=== PATIENT | female | born 1985 | race Caucasian/White ===

== ENCOUNTER 2018-06-09 10:46 | Outpatient (CLI) | payer OTHER ==
[~2018-06-09] VITALS: Ht 160 cm; Wt 60.6 kg
[~2018-06-09 10:46] MED LIST: PREN1TAB31 PO
[2018-06-09 11:10] VITALS: Ht 160 cm; Wt 60.6 kg
[2018-06-09 11:11] VITALS: BP 108/64; PULSE 75; RESP 20
--- NOTE | 2018-06-09 17:08 | PN ---
Triage Information Date/Time Reason for visit: 35+wks GA for NST BPP and EFW Weeks of Gestation 35+ /Para n.a Diabetes: none Hypertention: none Objective Vital Signs Date Temp Pulse Resp B/P (MAP) Pulse Ox O2 O2 Flow FiO2 Time Delivery Rate 06/09/18 97.5 75 20 108/64 Room Air 11:11 (79) Heart Rate: 140's Contractions: None Results/Medications Results 24 hrs Laboratory Tests Test 06/09/18 11:04 Urine Color YELLOW Urine Clarity CLEAR Urine pH 7.0 Urine Specific [place] 1.013 Urine Ketones TRACE A Urine Nitrite NEGATIVE Urine Bilirubin NEGATIVE Urine Urobilinogen 1+ H Urine Leukocyte Esterase NEGATIVE Urine Hemoglobin NEGATIVE Urine Glucose NEGATIVE Urine Total Protein NEGATIVE Disposition: Discharge Assessment/Plan BPP 01/22 Doppler studies reviewed Return to hospital in two days to monitor the bady Questions answered Follow up with provider QUIRINO LEPE M.D. Jun 09, 2018 17:08
--- NOTE | 2018-06-09 17:24 | TRIAGE ---
OB Triage Datetime Report Generated by CPN: 06/09/2018 17:24 Datetime: 06/09/2018 16:00 Labor Evaluation Frequency: X4 Monitor Mode: External Duration (sec)2399: 60 Quality: Strong Pattern: Normal: <= 5 Contractions in 10 Minutes Resting Tone [place]: Relaxed Heart Rate FHR Baseline Rate: 160 Monitor Mode: External US FHR Baseline Changes: No Baseline Change Variability: Moderate 6-25 bpm Accelerations: 15X15 Decelerations: None Category: Category I Pain Assessment Pain Scale: 7 Pain Presence: Intermittent Pain Type: Cramping Pain Location: Abdomen Pain Goal: 0 Datetime: 06/09/2018 14:59 Labor Evaluation Frequency: X5 Monitor Mode: External Duration (sec)2399: 60 Quality: Strong Pattern: Normal: <= 5 Contractions in 10 Minutes Resting Tone [place]: Relaxed Heart Rate FHR Baseline Rate: 130 Monitor Mode: External US FHR Baseline Changes: No Baseline Change Variability: Moderate 6-25 bpm Accelerations: 15X15 Decelerations: None Category: Category I Pain Assessment Pain Scale: 7 Pain Presence: Intermittent Pain Type: Contraction Pain Location: Abdomen Pain Goal: 0 Datetime: 06/09/2018 14:33 Vaginal Exam Dilatation (cms): 0.5 Effacement (%): 40 Station: -3 Exam By: MAY Datetime: 06/09/2018 14:00 Labor Evaluation Frequency: X4 Monitor Mode: External Duration (sec)2399: 60-100 Quality: Strong Pattern: Normal: <= 5 Contractions in 10 Minutes Resting Tone [place]: Relaxed Heart Rate FHR Baseline Rate: 130 Monitor Mode: External US FHR Baseline Changes: No Baseline Change Variability: Moderate 6-25 bpm Accelerations: 15X15 Decelerations: None Category: Category I Pain Assessment Pain Scale: 7 Pain Presence: Intermittent Pain Type: Contraction Pain Location: Abdomen Pain Goal: 0 Datetime: 06/09/2018 13:20 Labor Evaluation Frequency: x2 Monitor Mode: External Duration (sec)2399: 60-80 Quality: Mild Pattern: Normal: <= 5 Contractions in 10 Minutes Resting Tone [place]: Relaxed Heart Rate FHR Baseline Rate: 135 Monitor Mode: External US Variability: Moderate 6-25 bpm Accelerations: 15X15 Decelerations: None Category: Category I Datetime: 06/09/2018 12:29 Labor Evaluation Frequency: X2 Monitor Mode: External Duration (sec)2399: 60 Quality: Strong Pattern: Normal: <= 5 Contractions in 10 Minutes Resting Tone [place]: Relaxed Heart Rate FHR Baseline Rate: 130 Monitor Mode: External US FHR Baseline Changes: No Baseline Change Variability: Moderate 6-25 bpm Accelerations: 15X15 Decelerations: None Category: Category I Pain Assessment Pain Scale: 7 Pain Presence: Intermittent Pain Type: Contraction Pain Location: Abdomen Pain Goal: 2 Datetime: 06/09/2018 11:52 Labor Evaluation Frequency: X1 Monitor Mode: External Duration (sec)2399: 60 Quality: Mild Pattern: Normal: <= 5 Contractions in 10 Minutes Resting Tone [place]: Relaxed Heart Rate FHR Baseline Rate: 130 Monitor Mode: External US FHR Baseline Changes: No Baseline Change Variability: Moderate 6-25 bpm Accelerations: 15X15 Decelerations: None Category: Category I Pain Assessment Pain Scale: 7 Pain Presence: Intermittent Pain Type: Contraction Pain Location: Abdomen Pain Goal: 0 Datetime: 06/09/2018 11:29 Labor Evaluation Frequency: X2 Monitor Mode: External Duration (sec)2399: 40 Quality: Strong Pattern: Normal: <= 5 Contractions in 10 Minutes Resting Tone [place]: Relaxed Heart Rate FHR Baseline Rate: 130 Monitor Mode: External US FHR Baseline Changes: No Baseline Change Variability: Moderate 6-25 bpm Accelerations: 15X15 Decelerations: None Category: Category I Pain Assessment Pain Scale: 7 Pain Presence: Intermittent Pain Type: Contraction Pain Location: Abdomen Pain Goal: 2 Datetime: 06/09/2018 11:05 Stage of : OB Triage Assessment Type: Triage Time of Arrival: 06/09/2018 10:44 EGA: 35.5 Arrived By: Ambulatory Arrived From: [facility] Office Chief Complaint: SMALL FOR DATES. Movement: Present Contractions: Irregular Rupture of Membranes: Denies Vaginal Discharge: Denies Recent Sexual Intercouse: Denies Abdominal Trauma: Not Applicable Patient Complaints: Contractions Time Provider Notified: 06/09/2018 12:43 Provider Notified: DR. WHITMAN Initial Plan: NST, BPP, EFW Maternal Assessment Level of Consciousness: Fully Conscious DTR's/Clonus: DTRs 2+; No Clonus Headache: Denies Blurred Vision: No Respiratory Effort: Unlabored; Regular Rhythm; Equal Expansion Nausea/Vomiting: Denies RUQ Epigastric Pain: Denies Lower Extremities Edema: None Degree: None Upper Extremities Edema: None Degree: None Facial Edema: None Temperature Route: Axillary Fall Risk Assessment History of Falling: (0) No Secondary Diagnosis: (0) No Ambulatory Aid: (0) Bedrest/Nurse Assist IV Therapy: (0) No Gait: (0) Normal/Bedrest/Immobile Mental Status: (0) Oriented to Own Ability Fall Score: 0 Fall Risk Score Definition: No Risk: No action required Monitor Mode: External Monitor Mode: External US Pain Assessment Pain Scale: 7 Pain Presence: Intermittent Pain Type: Contraction Pain Location: Abdomen Pain Goal: 0
== END 2018-06-09 17:25 | disposition home or self-care (01) ==
LOC: OBT 10:46 → L-D 11:08 → OBT 17:25
PROVIDERS: ATTEND Obstetrics & Gynecology
DX: O26.843 Uterine size-date discrepancy, third trimester (principal); Z3A.35 35 weeks gestation of pregnancy
CPT/HCPCS: 76815; 76818; 76820; 81003; Z7500; G0463

== ENCOUNTER 2018-06-11 09:18 | Outpatient (CLI) | payer OTHER ==
[~2018-06-11] VITALS: Ht 160 cm; Wt 60.2 kg
[2018-06-11 09:34] VITALS: Ht 160 cm; Wt 60.2 kg
[2018-06-11 09:35] VITALS: BP 102/63; PULSE 87; RESP 18
--- NOTE | 2018-06-11 11:47 | TRIAGE ---
OB Triage Datetime Report Generated by CPN: 06/11/2018 11:46 Datetime: 06/11/2018 10:45 Stage of : OB Triage Maternal Assessment Level of Consciousness: Fully Conscious Labor Evaluation Frequency: OCCASIONAL Monitor Mode: External Duration (sec)2399: 80-120 Quality: Mild Resting Tone [place]: Relaxed Heart Rate FHR Baseline Rate: 135 Monitor Mode: External US Variability: Moderate 6-25 bpm Accelerations: 15X15 Decelerations: None Category: Category I Pain Assessment Pain Scale: 0 Pain Goal: 3 Vaginal Exam Membrane Status: Intact Vaginal Bleeding: None Datetime: 06/11/2018 09:31 Assessment Type: Triage Time of Arrival: 06/11/2018 09:15 EGA: 36.0 Arrived By: Ambulatory Arrived From: Home Chief Complaint: F/U NST/BPP FOR IUGR Movement: Present Contractions: Denies/Absent Rupture of Membranes: Denies Vaginal Bleeding: None Vaginal Discharge: Denies Recent Sexual Intercouse: Denies Abdominal Trauma: Not Applicable Patient Complaints: None Time Provider Notified: 06/11/2018 10:00 Provider Notified: ESHAGHIAN Initial Plan: EFM Maternal Assessment Level of Consciousness: Fully Conscious DTR's/Clonus: DTRs 2+; No Clonus Headache: Denies Blurred Vision: No Respiratory Effort: Unlabored; Regular Rhythm; Equal Expansion Breath Sounds, Left: Clear and Equal Breath Sounds, Right: Clear and Equal Nausea/Vomiting: Denies RUQ Epigastric Pain: Denies Lower Extremities Edema: None Degree: None Upper Extremities Edema: None Degree: None Facial Edema: None Fall Risk Assessment History of Falling: (0) No Secondary Diagnosis: (0) No Ambulatory Aid: (0) Bedrest/Nurse Assist IV Therapy: (0) No Gait: (0) Normal/Bedrest/Immobile Mental Status: (0) Oriented to Own Ability Fall Score: 0 Fall Risk Score Definition: No Risk: No action required Datetime: 06/11/2018 09:29 Monitor Mode: External Monitor Mode: External US Datetime: 06/09/2018 17:00 Labor Evaluation Frequency: X4 Monitor Mode: External Duration (sec)2399: 40-60 Quality: Strong Pattern: Normal: <= 5 Contractions in 10 Minutes Resting Tone [place]: Relaxed Heart Rate FHR Baseline Rate: 130 Monitor Mode: External US FHR Baseline Changes: No Baseline Change Variability: Moderate 6-25 bpm Accelerations: 15X15 Decelerations: None Category: Category I Pain Assessment Pain Scale: 7 Pain Presence: Intermittent Pain Type: Ache Pain Location: Abdomen Pain Goal: 0 Datetime: 06/09/2018 11:05 EGA: 35.5 Fall Score: 0 Fall Risk Score Definition: No Risk: No action required
--- NOTE | 2018-06-11 16:43 | PN ---
Triage Information Date/Time Reason for visit: Patient sent from her primary OB office for antepartum testing. Weeks of Gestation 36 weeks /Para Diabetes: none Hypertention: none Objective Vital Signs Date Temp Pulse Resp B/P (MAP) Pulse Ox O2 O2 Flow FiO2 Time Delivery Rate 06/11/18 97.7 87 18 102/63 Room Air 09:35 (76) Heart Rate: 140's Contractions: None Results/Medications Imaging Results There is a single intrauterine gestation in a vertex position. The heart rate is noted at 158 bpm. The placenta is maternal left. The LESTER measures 11.7 cm. RPTAT: AA IMPRESSION: Normal LESTER. Disposition: Discharge Assessment/Plan 33-year-old at 36 weeks present for antepartum testing. She states good movement. She denies nausea, vomiting, shortness of breath, chest pain, abdominal pain, headache, visual changes, vaginal bleeding or LOF. - FHR: No sign of metabolic acidosis- Category I - Contractions: None. - Symptoms and sign of labor, preeclampsia, kick count discussed with patient, she voiced understanding. All of her questions answered. - Patient was discharged home in stable condition with the appropriate discharge instructions provided. I would like patient to have close follow-up with her primary physician or outpatient clinic in 1-2 days or return to triage for worsening symptoms or any other urgent concerns. CLAU SPEARS Jun 11, 2018 16:43
== END 2018-06-11 11:50 | disposition home or self-care (01) ==
LOC: OBT 09:18 → L-D 09:18 → OBT 11:50
PROVIDERS: ATTEND Obstetrics & Gynecology
DX: O62.9 Abnormality of forces of labor, unspecified (principal); Z3A.36 36 weeks gestation of pregnancy
CPT/HCPCS: 76815; Z7500; G0463

== ENCOUNTER 2018-06-16 22:48 | Outpatient (CLI) | payer OTHER ==
[~2018-06-16] VITALS: Ht 160 cm; Wt 60.7 kg
[2018-06-16 23:40] VITALS: Ht 160 cm; Wt 60.7 kg
--- NOTE | 2018-06-17 01:18 | PN ---
Triage Information Date/Time June 17, 2018 Reason for visit: Uterine contractions Weeks of Gestation 36w 6d /Para 5/3 Diabetes: none Hypertention: none Additional information No leaking or bleeding. Pt talks mostly about the pain she experiences being due to the baby kicking her. PMHx: none. PSHx: x 3. NKDA Objective Heart Rate: 130's Heart Rate Comments Accels to 180 bpm. No decels. Contractions: >10 Minutes Apart (rare) Exam Closed/thick/-4 Results/Medications Results 24 hrs Laboratory Tests Test 06/16/18 23:08 06/17/18 00:19 Urine Color STRAW Urine Clarity CLEAR Urine pH 7.0 Urine Specific [place] 1.011 Urine Ketones NEGATIVE Urine Nitrite NEGATIVE Urine Bilirubin NEGATIVE Urine Urobilinogen NEGATIVE Urine Leukocyte Esterase NEGATIVE Urine Hemoglobin NEGATIVE Urine Glucose NEGATIVE Urine Total Protein NEGATIVE White Blood Count 7.8 Red Blood Count 3.44 L Hemoglobin 10.0 L Hematocrit 31.9 L Mean Corpuscular Volume 92.7 Mean Corpuscular Hemoglobin 29.1 Mean Corpuscular Hemoglobin Concent 31.3 L Red Cell Distribution Width 14.6 H Platelet Count 296 Mean Platelet Volume 9.2 Immature Granulocytes % 0.300 Neutrophils % 58.3 Lymphocytes % 30.4 Monocytes % 6.4 Eosinophils % 4.2 Basophils % 0.4 Nucleated Red Blood Cells % 0.0 Immature Granulocytes # 0.020 Neutrophils # 4.6 Lymphocytes # 2.4 Monocytes # 0.5 Eosinophils # 0.3 Basophils # 0.0 Nucleated Red Blood Cells # 0.0 Sodium Level 137 Potassium Level 3.5 Chloride Level 107 Carbon Dioxide Level 20 L Anion Gap 10 Blood Urea Nitrogen 8 Creatinine 0.67 Est Glomerular Filtrat Rate mL/min > 60 Glucose Level 81 Calcium Level 8.3 L Total Bilirubin 0.1 L Direct Bilirubin 0.00 Indirect Bilirubin 0.1 Aspartate Amino Transf (AST/SGOT) 17 Alanine Aminotransferase (ALT/SGPT) 12 L Alkaline Phosphatase 131 H Total Protein 6.4 Albumin 3.2 L Globulin 3.20 Albumin/Globulin Ratio 1.00 Imaging Results BPP 8/8 with an LESTER of 12.6 cm. Renal US negative. Disposition: Discharge Assessment/Plan A: IUP at 36w 6d. False labor. P: D/C home. Reviewed labor precautions with the pt. F/u with her doctor as scheduled this week. CONG HUYNH MD Jun 17, 2018 01:18
--- NOTE | 2018-06-17 01:34 | TRIAGE ---
OB Triage Datetime Report Generated by CPN: 06/17/2018 01:34 Datetime: 06/17/2018 01:12 Labor Evaluation Frequency: x1 Monitor Mode: External Duration (sec)2399: 60 Pattern: Normal: <= 5 Contractions in 10 Minutes Heart Rate FHR Baseline Rate: 135 Monitor Mode: External US FHR Baseline Changes: No Baseline Change Variability: Moderate 6-25 bpm Accelerations: 15X15 Datetime: 06/17/2018 00:30 Labor Evaluation Frequency: 0 Monitor Mode: External Duration (sec)2399: 0 Pattern: Normal: <= 5 Contractions in 10 Minutes Heart Rate FHR Baseline Rate: 135 Monitor Mode: External US FHR Baseline Changes: No Baseline Change Variability: Moderate 6-25 bpm Accelerations: 15X15 Decelerations: Variable Datetime: 06/17/2018 00:27 Pain Assessment Comments: PATIENT STATES SHE IS FEELING 'BETTER' AFTER BEING IN HOSPITAL Datetime: 06/17/2018 00:26 Monitor Mode: Palpation Resting Tone [place]: Relaxed Datetime: 06/16/2018 23:30 Monitor Mode: External Pattern: Normal: <= 5 Contractions in 10 Minutes Contraction Comments: Unable to fruit or nut picker uc's. readjusted toco Heart Rate FHR Baseline Rate: 125 Monitor Mode: External US FHR Baseline Changes: No Baseline Change Variability: Moderate 6-25 bpm Accelerations: 15X15 Datetime: 06/16/2018 23:26 Pain Assessment Comments: PATIENT C/O RIGHT LATERAL BACK PAIN Datetime: 06/16/2018 23:17 Pain Assessment Pain Scale: 9 Pain Presence: Intermittent Pain Location: Back Pain Relief Measures: Comfort Measures Vaginal Exam Dilatation (cms): 0.0 Effacement (%): 0 Station: -4 Exam By: MARIANELA RN Vaginal Bleeding: None Cervix, Consistency: Firm Cervix, Position: Posterior Presentation 'A': Unable to Assess Datetime: 06/16/2018 23:06 Maternal Assessment Level of Consciousness: Fully Conscious Headache: Denies Blurred Vision: No Nausea/Vomiting: Denies RUQ Epigastric Pain: Denies Facial Edema: None Datetime: 06/16/2018 23:04 Monitor Mode: Palpation Resting Tone [place]: Relaxed Datetime: 06/16/2018 23:03 Temperature Route: Oral Datetime: 06/16/2018 22:57 Stage of : OB Triage Assessment Type: Triage Maternal Assessment Level of Consciousness: Fully Conscious Headache: Denies Blurred Vision: No Respiratory Effort: Unlabored; Regular Rhythm; Equal Expansion Nausea/Vomiting: Denies RUQ Epigastric Pain: Denies Facial Edema: None Fall Risk Assessment History of Falling: (0) No Secondary Diagnosis: (0) No Ambulatory Aid: (0) Bedrest/Nurse Assist IV Therapy: (0) No Gait: (0) Normal/Bedrest/Immobile Mental Status: (0) Oriented to Own Ability Fall Score: 0 Fall Risk Score Definition: No Risk: No action required Datetime: 06/16/2018 22:56 Time of Arrival: 06/16/2018 22:42 EGA: 36.5 Arrived By: Wheelchair Arrived From: Home Chief Complaint: uc's since noon Movement: Present Contractions: Regular Contractions: q5min Rupture of Membranes: Denies Vaginal Bleeding: None Vaginal Discharge: Denies Recent Sexual Intercouse: Denies Abdominal Trauma: Not Applicable Patient Complaints: Contractions Time Provider Notified: 06/16/2018 23:37 Provider Notified: Eshaghian Initial Plan: efm, sve, call ob Datetime: 06/11/2018 09:31 EGA: 36.0 Fall Score: 0 Fall Risk Score Definition: No Risk: No action required Datetime: 06/09/2018 11:05 EGA: 35.5 Fall Score: 0 Fall Risk Score Definition: No Risk: No action required
== END 2018-06-17 01:18 | disposition home or self-care (01) ==
LOC: OBT 22:48 → L-D 22:49 → OBT 06-17 01:18
PROVIDERS: ATTEND Obstetrics & Gynecology
DX: O62.9 Abnormality of forces of labor, unspecified (principal); Z3A.36 36 weeks gestation of pregnancy
CPT/HCPCS: 76775; 76818; 80053; 81003; 85025; Z7500; G0463

== ENCOUNTER 2018-06-20 10:18 | Inpatient (IN) | payer OTHER ==
[~2018-06-20] VITALS: Ht 160 cm; Wt 60.7 kg
[~2018-06-20 10:18] MED LIST changes: +OXYTOCIN 30 UNITS/LR 500 ML BAG IV ONE
[2018-06-20 10:30] VITALS: Ht 160 cm; Wt 60.7 kg
[2018-06-20 10:32] VITALS: BP 102/57; PULSE 68; RESP 18
[2018-06-20] MEDS ORDERED: OXYTOCIN 30 UNITS/LR 500 ML IV PRN ×2 (13:00→23:00)
[2018-06-20] MEDS ORDERED: OXYTOCIN 30 UNITS/LR 500 ML IV SCH (13:00)
[2018-06-20] MEDS ORDERED: CEFAZOLIN 2 GM/50 ML (PMX) 50 ML IVPB SCH (13:00)
[2018-06-20] MEDS ORDERED: MISOPROSTOL 200 MCG TAB PR PRN ×2 (13:00→23:00)
[2018-06-20] MEDS ORDERED: METHYLERGONOVINE 0.2 MG INJ IM PRN ×2 (13:00→23:00)
[2018-06-20] MEDS ORDERED: CARBOPROST 250 MCG INJ IM PRN ×2 (13:00→23:00)
--- NOTE | 2018-06-20 13:04 | PREAC ---
Date/Time of Note Date/Time of Note DATE: 06/20/18 TIME: 13:02 Anesthesia Eval and Record Evaluation Time Pre-Procedure Interview DATE: 06/20/18 TIME: 13:02 Age 33 Sex female NPO: 8 hrs Preoperative diagnosis IUGR and Repeat Planned procedure Repeat Past Medical History Past Medical History: Includes : : (4), Para: (4 one twin preganancy), Gestational age: (37), Other (IUGR) Surgery & Anesthesia Issues No known issue Meds Anticoagulation: No Beta Jackelyn within 24 hr: No Reason Beta Jackelyn not given: Pt. not on B-Jackelyn Reported Medications Vits #90-Iron Fum-FA ( Formula) 1 Each Tablet, 1 TAB PO AC DINNER, TAB 04/05/15 Current Medications Lactated Ringer's 1,000 ml @ 125 mls/hr Q8H IV ; Start 06/20/18 at 12:51 Cefazolin Sodium/ Dextrose 50 ml @ 100 mls/hr ONCE IVPB ; Start 06/20/18 at 13:00 Oxytocin/Lactated Ringer's 500 ml @ 125 mls/hr POST IV ; Start 06/20/18 at 13:00 Oxytocin/Lactated Ringer's 500 ml @ 0 mls/hr ONCE PRN IV .VAGINAL BLEEDING; Start 06/20/18 at 13:00 Methylergonovine Maleate (Methergine) 0.2 mg ONCE PRN IM .VAGINAL BLEEDING; Start 06/20/18 at 13:00 Carboprost Tromethamine (Hemabate) 250 mcg ONCE PRN IM .VAGINAL BLEEDING; Start 06/20/18 at 13:00 Misoprostol (Cytotec) 1,000 mcg ONCE PRN [place] .VAGINAL BLEEDING; Start 06/20/18 at 13:00 Meds reviewed: Yes Allergies Coded Allergies: No Known Allergy (Verified , 06/16/18) Allergies Reviewed: Yes Labs/Studies Labs Reviewed: Reviewed by anesthesiologist test: Positive Studies: ECG (n/a), CXR (n/a) Pre-procedure Exam Last vitals Vital Signs Date Temp Pulse Resp B/P (MAP) Pulse Ox O2 O2 Flow FiO2 Time Delivery Rate 06/20/18 98.5 68 18 102/57 10:32 (72) Airway: Adequate mouth opening, Adequate thyromental dist Mallampati: Mallampati II Teeth: Normal Lung: Normal Heart: Normal ASA Physical Status ASA physical status: 2 Emergency: None Planned Anesthetic Neuraxial: Spinal Planned Pain Management Sub-arachniod narcotics, Parenteral pain med Pre-operative Attestations Prior to commencing anesthesia and surgery, the patient was re-evaluated, there was verification of: *The patient's identity *The results of appropriate recent lab work and preoperative vital signs *The above evaluation not changing prior to induction *Anesthetic plan, risk benefits, alternative and complications discussed with patient/family; questions answered; patient/family understands, accepts and wishes to proceed. LEAH MILLER MD Jun 20, 2018 13:04
[2018-06-20] MEDS ORDERED: CITRIC ACID/NA CITRATE 30 ML CUP PO ONE (13:30)
[2018-06-20] MEDS ORDERED: ONDANSETRON 4 MG INJ IV ONE (13:30)
[2018-06-20] MEDS: LACTATED RINGER'S 1,000 ML IV SCH ×2 (13:33→20:51)
--- NOTE | 2018-06-20 13:37 | HP ---
Date/Time of Note Date/Time of Note DATE: 06/20/18 TIME: 13:25 OB - History Hx of Present Free Text/Dictation 33y.o A1 x3 C/S last c/s for twin gestations here for F/U for SGA She has been f/u for SGA since 32w Today BPP 11/20 LESTER 12.,1 EFW 2486 gm which is 6.2% MFM was consulted (Dr Mccormack) ,who recommended for delivery. repare for repeat c/s Chief Complaint: SGA Estimated Due Date: Jul 09, 2018 : 5 Para: 4 Spontaneous : 0 Therapeutic : 0 Care: Good Care Ultrasounds: Normal mid trimester US Obstetrical Complications: Other (SGA) Medical Complications: None Past Family/Social History * Past Medical, Surgical, Family and Obstetric Histories reviewed from chart. Blood Type: A+ Rubella: immune RPR/VDRL: Negative GBS Status: Unknown HBsAG: Negative OB Admission Exam Vital Signs Vital Signs Vital Signs Date Temp Pulse Resp B/P (MAP) Pulse Ox O2 O2 Flow FiO2 Time Delivery Rate 06/20/18 98.5 68 18 102/57 10:32 (72) Physical Exam HEENT: WNL Heart: Rhythm Normal Lungs: Clear, Equal Abdomen: WNL Extremities: Normal Reflexes: Normal Cervical Dilatation: None Effacement: 0% Station: -3 Membranes: Intact Amniotic Fluid: Unevaluable Heart Rate: 140's Accelerations: Accelerations Present Decelerations: No Decelerations Varibility: Moderate Contractions on Admission: 6-10 Minutes Apart Intensity: Mild OB Assessment/Plan Other Assessment: IUP 37w2d IUGR/SGA X3 previous C/S Plan: Section NITIN LR MD Jun 20, 2018 13:35
[2018-06-20] MEDS ORDERED: PHENYLephrine (100 MCG/ML) 10ML SYG ONE (16:40)
[2018-06-20] MEDS ORDERED: OXYTOCIN 10 UNIT INJ ONE (16:41)
[2018-06-20] MEDS ORDERED: morphine SULFATE/PF (10 MG/10 ML) INJ ONE (16:41)
[2018-06-20] MEDS ORDERED: KETOROLAC 30 MG INJ ONE (17:13)
[2018-06-20] MEDS ORDERED: METOCLOPRAMIDE 10 MG INJ ONE (17:13)
[2018-06-20] MEDS ORDERED: DEXAMETHASONE 4 MG/ML 1 ML INJ ONE (17:13)
[2018-06-20] MEDS ORDERED: DIPHENHYDRAMINE 50 MG INJ IV PRN ×2 (17:30→23:00)
[2018-06-20] MEDS ORDERED: morphine 2 MG INJ IV PRN ×2 (17:30)
[2018-06-20] MEDS ORDERED: ACETAMINOPHEN 500 MG TAB PO PRN (17:30)
[2018-06-20] MEDS ORDERED: NALOXONE (0.4 MG/ML) INJ IV PRN (17:30)
[2018-06-20] MEDS ORDERED: ONDANSETRON 4 MG INJ IV PRN ×2 (17:30→23:00)
[2018-06-20] MEDS ORDERED: KETOROLAC 30 MG INJ IV PRN (17:30)
[2018-06-20] MEDS ORDERED: HYDROCODONE/APAP (5/325) TAB PO PRN (17:30)
[2018-06-20] MEDS ORDERED: HYDROmorphONE 0.5 MG/0.5 ML SYG IV PRN ×2 (17:30)
[2018-06-20] MEDS ORDERED: NALBUPHINE HCL (10 MG/1 ML) INJ IV PRN (17:30)
--- NOTE | 2018-06-20 18:20 | PAC ---
Date/Time of Note Date/Time of Note DATE: 06/20/18 TIME: 18:19 Post-Anesthesia Notes Post-Anesthesia Note Last documented vital signs Vital Signs Date Temp Pulse Resp B/P (MAP) Pulse Ox O2 O2 Flow FiO2 Time Delivery Rate 06/20/18 98.5 68 18 102/57 99 room air 18:22 (72) Activity: WNL Respiratory function: WNL Cardiovascular function: WNL Mental status: Baseline Pain reasonably controlled: Yes Hydration appropriate: Yes Nausea/Vomiting absent: Yes LEAH MILLER MD Jun 20, 2018 18:20
--- NOTE | 2018-06-20 18:47 | OPPN ---
Date/Time of Note Date/Time of Note DATE: 06/20/18 TIME: 18:43 Operative Report Planned Procedure Free Text/Dictation IUGR at 37w2d x3 previous c/s Procedure date Jun 20, 2018 Procedure(s) Repeat LTC/S Performed by see signature line Nutrition Internship: CONG HUYNH 2nd Nutrition Internship none Anesthesiologist: LEAH MILLER MD Pre-procedure diagnosis IUP 37w2d IUGR [id number] Anesthesia Type: Gopte2f spinal Post-Procedure Post-procedure diagnosis delivered normal male infsant Findings Live Baby [m], Apgars [8] and 9[], weight [], position [rot, [vx] presentation [[id number]]cord. Estimated Blood Loss: 600 - 700 mls Specimen(s) none Grafts/Implant(s) none Complication(s) none NITIN LR MD Jun 20, 2018 18:47
[2018-06-20 22:30] VITALS: BP 86/54; PULSE 62; RESP 20
[2018-06-20] MEDS ORDERED: LACTATED RINGER'S 1,000 ML IV SCH (22:38)
[2018-06-20 23:00] VITALS: BP 89/59; PULSE 60; RESP 19
[2018-06-20] MEDS ORDERED: LANOLIN HPA 1 PKT TOP PRN (23:00)
[2018-06-20] MEDS ORDERED: OXYCODONE/ACETAMINOPHEN (5/325) TAB PO PRN (23:00)
[2018-06-20] MEDS ORDERED: ZOLPIDEM 5 MG TAB PO PRN (23:00)
[2018-06-21] VITALS: BP 91/56; PULSE 61; RESP 20
[2018-06-21 04:00] VITALS: BP 95/57; PULSE 66; RESP 19
[2018-06-21] MEDS: LACTATED RINGER'S 1,000 ML IV SCH ×3 (08:00→15:58)
[2018-06-21 08:15] VITALS: BP 93/61; PULSE 83; RESP 16
[2018-06-21] MEDS: SENNA/DOCUSATE NA (8.6MG/50MG) TAB PO SCH ×2 (08:44→21:06)
[2018-06-21 11:37] VITALS: BP 95/53; PULSE 74; RESP 20
[2018-06-21 16:47] VITALS: BP 88/56; PULSE 84; RESP 16
[2018-06-21 20:15] VITALS: BP 100/59; PULSE 88; RESP 20
[2018-06-21] MEDS: OXYCODONE/ACETAMINOPHEN (5/325) TAB PO PRN (21:06)
--- NOTE | 2018-06-21 23:31 | QN ---
Documentation Comment progress note pod 1 patient seen and evaluated no complaints vs stable afebrile ab soft nt dressing clean dry extremity no edema no calf tenderness a/ sp cd pod 1 stable afebrile p/ iron supplement YUKI DUBOIS MD Jun 21, 2018 23:31
[2018-06-22] MEDS: LACTATED RINGER'S 1,000 ML IV SCH
[2018-06-22] MEDS: IBUPROFEN 600 MG TAB PO SCH ×5 (00:19→23:51)
[2018-06-22 04:11] VITALS: BP 99/55; PULSE 140; RESP 20
[2018-06-22] MEDS: FERROUS SULFATE (EC) 325 MG TAB PO SCH ×2 (08:16→20:22)
[2018-06-22] MEDS: SENNA/DOCUSATE NA (8.6MG/50MG) TAB PO SCH ×2 (08:16→20:23)
[2018-06-22] MEDS: OXYCODONE/ACETAMINOPHEN (5/325) TAB PO PRN (08:16)
[2018-06-22 09:04] VITALS: BP 101/56; PULSE 74; RESP 18
--- NOTE | 2018-06-22 10:44 | PD.PPDC ---
[facility] Discharge Instruction Condition [id number] Patient Condition: [id number] Fair Diet [id number] Diet: Xlhkn9j Resume Regular Diet Activity/Restrictions Enway5Bo Activity: Fsoxx6s Normal Activity May Shower [id number] Restrictions: Tyycs1r No Exercising No Lifting No Driving No Sexual Activity Nothing in the Vagina No [place] No Tampons, douche Follow-up Follow-up with Physician: 2, Week/Weeks Return to clinic for Cagon2Bo HISTOLOGY ASSISTANT Instructions: Shnri9i Fever greater than 101 Chills Worsening abdominal pain Excessive Vaginal Bleeding More than 2 pads per hour Unable to tolerate diet [id number] OB Instructions: Dfxwu9i Breast Tenderness Depression Blurried Vision Headache [id number] Surgical Instructions: Xrreu2e Incisional Drainage Incisional Redness YUKI DUBOIS MD Jun 22, 2018 10:44
--- NOTE | 2018-06-22 10:46 | QN ---
Documentation Comment progress note pod 2 patient seen and evaluated no complaints vs stable afebrile ab soft nt dressing clean dry extremity no edema no calf tenderness a/ sp cd pod 2 stable afebrile p/ discharge home tomorrow YUKI DUBOIS MD Jun 22, 2018 10:46
--- NOTE | 2018-06-22 11:49 | DS ---
DATE OF ADMISSION: 06/20/2018 DATE OF DISCHARGE: 06/22/2018 PRIMARY DIAGNOSIS: Intrauterine at 37 weeks and 3 days gestational age, IUGR times 3 previ ous C-sections. PROCEDURE: Repeat low transverse delivery. CONDITION ON DISCHARGE: Stable. ACTIVITY: None per vagina, no heavy lifting x6 weeks. DIET: Regular. MEDICATIONS ON DISCHARGE: 1. Motrin. 2. Iron. 3. Colace. DISCHARGE SUMMARY: Ms. Dee Elizondo underwent a repeat low transverse delivery on 06/20. She had a viable male, 8 and 9 respectively at 1 and 5 minutes with x1 nuchal cord arou nd the neck. She had an uneventful postop day 1 and 2. She was discharged on postop day 3. Her inc ision is clean, dry, and intact. She is ambulating, tolerating diet, positive flatulence, positive b owel movement. She will follow up in clinic in 2 weeks for /postop care. Dictated By: YUKI DAS/[place] Conf#: [id number] DID#: [id number]
[2018-06-22 15:50] VITALS: BP 89/52; PULSE 77; RESP 16
[2018-06-22 19:30] VITALS: BP 104/54; PULSE 82; RESP 18
[2018-06-22] MEDS ORDERED: AZITHROMYCIN 250 MG TAB PO ONE (21:30)
[2018-06-22] MEDS: GUAIFENESIN 20 MG/ML 5ML CUP PO PRN (22:39)
[2018-06-23 04:02] VITALS: BP 89/50; PULSE 68; RESP 18
[2018-06-23] MEDS: GUAIFENESIN 20 MG/ML 5ML CUP PO PRN (04:45)
[2018-06-23] MEDS: IBUPROFEN 600 MG TAB PO SCH ×2 (05:52→12:16)
[2018-06-23 07:30] VITALS: BP 95/62; PULSE 67; RESP 20
[2018-06-23] MEDS: FERROUS SULFATE (EC) 325 MG TAB PO SCH (08:31)
[2018-06-23] MEDS: SENNA/DOCUSATE NA (8.6MG/50MG) TAB PO SCH (08:31)
[2018-06-23] MEDS: OXYCODONE/ACETAMINOPHEN (5/325) TAB PO PRN ×2 (08:39→14:48)
[2018-06-23] MEDS ORDERED: AZITHROMYCIN 250 MG TAB PO SCH (09:00)
[2018-06-23] MEDS ORDERED: DIPHTH/TET/ACEL PERTUSS (ADULT) 0.5 ML VIAL IM* ONE (09:00)
--- NOTE | 2018-06-23 14:21 | OPR ---
DATE OF OPERATION: 06/20/2018 PREOPERATIVE DIAGNOSES: 1. of 37 weeks 2 days. 2. Three previous sections. 3. Intrauterine growth restriction. POSTOPERATIVE DIAGNOSES: 1. of 37 weeks 2 days. 2. Three previous sections. 3. Intrauterine growth restriction. 4. Delivered normal male , 8 and 9 with 1 nuchal cord. Baby weighed more than 2500. PROCEDURE: Repeat low transverse section. ANESTHESIA: Spinal. ANESTHESIOLOGIST: Refer to the chart. SURGEON: Janis Rust MD FLAME DEGREASER: Gareth Toussaint MD ESTIMATED BLOOD LOSS: Approximately 700 mL. FINAL SPONGE COUNT: Correct. PROCEDURE IN DETAILS: Under proper induction of spinal anesthesia, the patient was placed in the fro g position. Rolon catheter was introduced into the bladder under sterile condition and repositioned to supine. Abdominal wall was prepped and draped in usual aseptic manner. A transverse incision was made along the previous incisional scar. Scar tissue was excised. Incision was carried down throug h the subcutaneous tissue to the anterior recti fascia which was incised transversely in length of th e incision. Fascial flap was created by blunt and sharp dissection of tendinous attachment with some difficulty due to the previous scar formation from the previous 3 C-sections. Abdominal cavity was entered. The bladder blade was introduced. A transverse incision was made above the uterovesical re flection and incision was carried down layer by layer, reached the amniotic membrane, which was ruptu red, revealed clear amniotic fluid. A normal male infant was born from the right occiput transverse position. Mouth and nose were cleaned and cord was delayed clamped and cut and handed to the respira tory care personnel for further care. was 8 and 9. Cord blood was obtained. Placenta was rem edwige manually after uterus was exteriorized. Uterine cavity was completely explored for remnant of f etal membrane. Uterine incision was closed using #1 chromic catgut in continuous interlocking manner on the first layer and second layer using 0 chromic catgut in Lembert manner thus imbricating the fi rst layer of closure. There was one bleeder on the left lateral aspect which was controlled with 0 c hromic catgut in [id number] manner. The abdominal cavity was irrigated with water. All the spo nge was removed and the sponge count was correct. The uterus was relocated into the abdominal cavity and uterine incisional site was rechecked, which was intact. A piece of Surgicel was laid on the in cisional site. Parietal peritoneum was closed using 0 chromic catgut in continuous manner. Muscle w as closed with 0 chromic catgut in continuous manner. Fascia was closed with #1 Vicryl in continuous manner in 2 segments. Subcutaneous tissue was irrigated with water. This layer was approximated wi th 2-0 plain after adequate hemostasis was secured. Skin was closed with 4-0 Monocryl in subcuticula r manner. During the skin closure even after the adequate hemostasis was secured in the subcutaneous tissue, there was a lot of bleeding from the incisional site which led me use of multiple Allis clam ps to control the bleeding and finally, the skin was closed and the Steri-Strip applied and pressure dressing applied. Estimated blood loss was approximately 700 mL. The patient withstood the procedur e well and was sent to the recovery room in stable condition. Urine was clear, but the urine output was not checked. Dictated By: JANIS GOLDSMITH/[place] Conf#: [id number] DID#: [id number] CC: YUKI DUBOIS MD;*EndCC*
== END 2018-06-23 17:45 | disposition home or self-care (01) | DRG 788 ==
LOC: OBT 10:18 → L-D 10:21 → OBT 12:30 → L-D 12:30 → PP1 22:31
PROVIDERS: ADMIT Obstetrics & Gynecology; ATTEND Obstetrics & Gynecology
PROC: 10D00Z1 Extraction of Products of Conception, Low, Open Approach (ICD-10-PCS; principal; 2018-06-20 16:30)
DX: O34.211 Maternal care for low transverse scar from previous cesarean delivery (principal); O69.81X0 Labor and delivery complicated by cord around neck, without compression, not applicable or unspecified; O36.5930 Maternal care for other known or suspected poor fetal growth, third trimester, not applicable or unspecified; Z3A.37 37 weeks gestation of pregnancy; Z37.0 Single live birth
CPT/HCPCS: 76815; 76818; 85025; 85610; 85730; 86592; 86850; 86900; 86901; 87340; 90686; 90715; 99464; G0463; J0690; J1100; J1885; J2274; J2370; J2405; J2590; J2765; J7120